=== PATIENT | male | born 1985 | race Caucasian/White ===

== ENCOUNTER 2025-01-01 19:54 | Emergency (ER) | payer SELFPAY ==
[~2025-01-01] VITALS: Ht 185.4 cm; Wt 68.0 kg
[2025-01-01] MEDS ORDERED: FLUORESCEIN SODIUM 1 MG EA OD ONE (21:50)
[2025-01-01] MEDS ORDERED: TETRACAINE HCL 0.5 %/4 ML SOL OD ONE (21:55)
[2025-01-02] MEDS ORDERED: TOBREX OPTH5 ML/BTL OU (00:18)
[2025-01-02 00:50] VITALS: BP 121/75
== END 2025-01-02 00:50 | disposition home or self-care (01) | DRG 125 ==
LOC: ED 19:54
DX: S00.11XA Contusion of right eyelid and periocular area, initial encounter (principal); F17.210 Nicotine dependence, cigarettes, uncomplicated; W20.8XXA Other cause of strike by thrown, projected or falling object, initial encounter; Y93.H9 Activity, other involving exterior property and land maintenance, building and construction